=== PATIENT | female | born 1985 | race Caucasian/White ===

== ENCOUNTER 2023-08-26 11:51 | Day surgery (SDC) | payer BC ==
[~2023-08-26 11:51] MED LIST: Albuterol 0.083% 2.5 MG/3 ML Neb Soln NEB PRN; HYDROmorphone 1 MG/ML Syringe IVPUSH PRN; Lactated Ringers 1,000 ML IV SCH; Metoclopramide 10 MG/2 ML SDV IVPUSH PRN; Morphine 2 MG/ML SYRINGE IVPUSH PRN; Naloxone 0.4 MG/ML SDV IVPUSH PRN; Ondansetron 4 MG/2 ML SDV IVPUSH PRN; Sodium Chloride 0.9% 10 ML Syringe FLUSH PRN; Sodium Chloride 0.9% 2.5 ML Syringe FLUSH PRN; Sodium Chloride 0.9% 20 ML SDV IV PRN; ceFAZolin 2 GM in Sodium Chloride 0.9% 50 ML IV ONE; droPERidol 5 MG/2 ML SDV IVPUSH PRN; fentaNYL 50 MCG/ML SDV IVPUSH PRN
[2023-08-26] MEDS ORDERED: Propofol 200 MG/20 ML SDV ONE (12:12)
[2023-08-26] MEDS ORDERED: propofoL 50 ML ONE ×2 (12:12→13:26)
[2023-08-26] MEDS ORDERED: fentaNYL 250 MCG/5 ML SDV ONE (12:13)
[2023-08-26] MEDS ORDERED: Bupivacaine 0.25% 10 ML SDV ONE (12:19)
[2023-08-26] MEDS ORDERED: Bupivacaine 0.25% 30 ML SDV ONE (12:20)
[2023-08-26] MEDS ORDERED: Lidocaine 1% 20 ML MDV ONE (12:23)
[2023-08-26] MEDS ORDERED: Bupivacaine 0.5% 10 ML SDV ONE (12:23)
[2023-08-26] MEDS ORDERED: Ondansetron 4 MG/2 ML SDV ONE (13:04)
[2023-08-26] MEDS ORDERED: ceFAZolin 2 GM Vial ONE (13:04)
[2023-08-26] MEDS ORDERED: dexmedeTOMIDine HCl 200 MCG/2 ML SDV ONE (13:04)
[2023-08-26] MEDS ORDERED: Dexamethasone 4 MG/ML 5 ML MDV ONE (13:04)
[2023-08-26] MEDS ORDERED: Magnesium Sulfate (4.06 MEQ/ML) 5 GM/10 ML SDV ONE (13:08)
[2023-08-26] MEDS ORDERED: Ketorolac 30 MG/ML SDV ONE (13:27)
[2023-08-26] MEDS ORDERED: ePHEDrine 50 MG/ML SDV ONE (13:43)
[2023-08-26 14:57] VITALS: PULSE 86
[2023-08-26 15:43] VITALS: BP 113/59
== END 2023-08-26 15:35 | disposition home or self-care (01) ==
LOC: MW.SDS 11:51
PROVIDERS: ATTEND Surgery
DX: N61.0 Mastitis without abscess (principal); N64.89 Other specified disorders of breast; K42.9 Umbilical hernia without obstruction or gangrene; J45.909 Unspecified asthma, uncomplicated; E03.9 Hypothyroidism, unspecified; E66.9 Obesity, unspecified; Z68.33 Body mass index [BMI] 33.0-33.9, adult; Z79.890 Hormone replacement therapy; Z79.899 Other long term (current) drug therapy; Z91.040 Latex allergy status
CPT/HCPCS: 19120; 49591; 64486; 81025; 87070; 87075; 87205; J0131; J0690; J1100; J1885; J2405; J2704; J3010; J3475; J3490; J7120; S0020